=== PATIENT | male | born 1985 | race Caucasian/White ===

== ENCOUNTER 2016-08-18 12:01 | Emergency (ER) | payer BC, MEDICAID ==
[2016-08-18 12:13] VITALS: BP 141/80
--- NOTE | 2016-08-18 12:27 | UC ---
Hand/Wrist HPI - HPI Summary HPI Summary: FELL BACKWARDS WHILE SNOWBOARDING 11 DAYS AGO. LANDED ON OUTSTRETCHED LEFT HAND AND BUTTOCKS. HAS PAIN IN LOW BACK, TAILBONE AND LEFT WRIST THAT ARE NOT IMPROVING. - History Of Current Complaint Chief Complaint: UCTrauma Stated Complaint: BACK AND WRIST INJURY Time Seen by Provider: 08/18/16 12:11 Hx Obtained From: Patient Onset/Duration: Sudden Onset, Lasting Days, Still Present Severity Initially: Moderate Severity Currently: Moderate Pain Intensity: 10 Pain Scale Used: 0-10 Numeric Character Of Pain: Sharp Aggravating Factor(s): Movement Alleviating: Nothing Associated Signs And Symptoms: Positive: Swelling Related History: Dominant Hand Right - Allergies/Home Medications Allergies/Adverse Reactions: Allergies Allergy/AdvReac Type Severity Reaction Status Date / Time No Known Allergies Allergy Verified 08/18/16 12:13 Home Medications: Home Medications Acetaminophen [Tylenol] 1 tab PRN 08/18/16 [History] PMH/Surg Hx/FS Hx/Imm Hx Previously Healthy: Yes - Surgical History Surgical History: Yes Surgery Procedure, Year, and Place: Fx Jaw - jaw wire 2006 - Family History Known Family History: Negative: Hypertension - Social History Alcohol Use: None Substance Use Type: None Smoking Status (MU): Never Smoked Tobacco Household Exposure Type: Cigarettes - Immunization History Most Recent Influenza Vaccination: never Most Recent Tetanus Shot: up to date Review of Systems Constitutional: Negative Skin: Negative Respiratory: Negative Cardiovascular: Negative Gastrointestinal: Negative Musculoskeletal: Arthralgia, Decreased ROM, Edema, Myalgia All Other Systems Reviewed And Are Negative: Yes Physical Exam Triage Information Reviewed: Yes Appearance: Well-Appearing, No Pain Distress, Well-Nourished Vital Signs: Initial Vital Signs Temp 98.1 F 08/18/16 12:06 Pulse 73 08/18/16 12:06 Resp 16 08/18/16 12:06 BP 141/80 08/18/16 12:06 Pulse Ox 97 08/18/16 12:06 Vital Signs Reviewed: Yes Eyes: Positive: Conjunctiva Clear ENT: Positive: Hearing grossly normal Neck: Positive: Supple Respiratory: Positive: No respiratory distress, No accessory muscle use Cardiovascular: Positive: Pulses Normal Abdomen Description: Positive: Soft Musculoskeletal: Positive: ROM Limited @ - LEFT WRIST, BACK, Edema @ - LEFT WRIST, Other: - TTP LEFT WRIST ANATOMIC SNUFFBOX AND CARPAL BONES. TTP COCCYX Neurological: Positive: Alert Psychological: Positive: Age Appropriate Behavior Skin: Negative: rashes Diagnostics - Radiology LEFT WRIST XRAY Xray Interpretation: No Acute Changes Radiology Interpretation Completed By: Radiologist LUMBARSACRAL XRAY Xray Interpretation: No Acute Changes Radiology Interpretation Completed By: Radiologist SACRUM/COCCYX XRAY Xray Interpretation: No Acute Changes Radiology Interpretation Completed By: Radiologist Hand/Wrist Course/Dx - Differential Dx/Diagnosis Differential Diagnosis/HQI/PQRI: Fracture, Tendonitis Provider Diagnoses: 1. LEFT WRIST SPRAIN. 2. CONTUSION COCCYX Discharge - Discharge Plan Condition: Stable Disposition: HOME Prescriptions: Hydrocodone-Acetaminophen [Lorcet 5-325 mg] 1 tab PO QID PRN #20 tab MDD 4 PRN Reason: Pain Patient Education Materials: Coccyx Injury (ED), Wrist Sprain (ED) Referrals: Kenneth Mcgovern MD [Medical Doctor] - 5 Days Additional Instructions: XRAYS TODAY DO NOT SHOW ANY CLEAR FRACTURE OR ABNORMALITY. GIVEN THE SEVERITY OF YOUR PAIN AND THE FACT THAT IT IS NOT IMPROVING AT ALL WOULD RECOMMEND ORTHO FOLLOW-UP FOR FURTHER EVALUATION. THUMB SPICA SPLINT. CALL THE NUMBER BELOW FOR ASSISTANCE IN ESTABLISHING WITH A PCP An additional resource available to assist in finding the appropriate physician for your health care needs is the [facility] ([facility]). You may contact them by calling [phone].
--- NOTE | 2016-08-18 13:04 | RAD ---
INDICATION: Left wrist injury COMPARISON: None TECHNIQUE: AP, lateral, and oblique views were obtained. FINDINGS: There is a bony protuberance from the ulnar aspect of the distal radius. This could be developmental or be related to an old injury. The bony structures and joint spaces are otherwise unremarkable.. IMPRESSION: NO ACUTE BONY FINDINGS.
--- NOTE | 2016-08-18 13:05 | RAD ---
INDICATION: Back pain COMPARISON: None TECHNIQUE: Routine PA, lateral, and oblique imaging was performed . FINDINGS: Bones: There are no acute bony findings. There are no significant osteoarthritic findings. Alignment: Normal Disc spaces: The disc spaces are well-maintained Soft tissues: There are no soft tissue abnormalities. IMPRESSION: NEGATIVE EXAMINATION.
--- NOTE | 2016-08-18 13:05 | RAD ---
HISTORY: Trauma, pain COMPARISONS: None VIEWS: 3, frontal, oblique, and lateral views of the sacrum FINDINGS: BONE DENSITY: Normal. BONES: There is no displaced fracture. JOINTS: There is no arthropathy. ALIGNMENT: There is no dislocation. SOFT TISSUES: Unremarkable. OTHER FINDINGS: None. IMPRESSION: NO ACUTE OSSEOUS INJURY OF THE SACRUM AND COCCYX. PLAIN FILMS ARE RELATIVELY INSENSITIVE TO NONDISPLACED FRACTURES OF THE SACRUM AND COCCYX. IF THERE IS PERSISTENT CLINICAL CONCERN FOR SACROCOCCYGEAL OSSEOUS PATHOLOGY, BONE SCANNING MAY BE MORE SENSITIVE
== END 2016-08-18 13:35 | disposition home or self-care (01) ==
LOC: UCEAST 12:01
DX: S63.502A Unspecified sprain of left wrist, initial encounter (principal); S30.0XXA Contusion of lower back and pelvis, initial encounter; W17.89XA Other fall from one level to another, initial encounter; Y93.23 Activity, snow (alpine) (downhill) skiing, snowboarding, sledding, tobogganing and snow tubing; Y92.9 Unspecified place or not applicable
CPT/HCPCS: 72110; 72220; 99213; G0463

== ENCOUNTER 2018-04-01 08:56 | Emergency (ER) | payer MEDICAID, OTHER ==
[2018-04-01 09:05] VITALS: BP 129/76
--- NOTE | 2018-04-01 10:15 | RAD ---
HISTORY: right hemicranial JEREZ COMPARISONS: March 10, 2010 TECHNIQUE: Multiple contiguous axial CT scans were obtained of the head without intravenous contrast. FINDINGS: HEMORRHAGE/INFARCT: There is no hemorrhage or acute infarct. MASSES/SHIFT: There is no mass or shift. EXTRA-AXIAL SPACES: There are no extra-axial fluid collections. SULCI AND VENTRICLES: The sulci and ventricles are normal in size and position for the patient's stated age. CEREBRUM: There are no focal parenchymal abnormalities. BRAINSTEM: There are no focal parenchymal abnormalities. CEREBELLUM: There is stable low-attenuation lesion of the right inferior cerebellum. VESSELS: The vessels are grossly normal. PARANASAL SINUSES: The paranasal sinuses are clear. ORBITS: The orbits are unremarkable. BONES AND SOFT TISSUE: No bone or soft tissue abnormalities are noted. OTHER: None IMPRESSION: 1. NO ACUTE INTRACRANIAL PATHOLOGY. 2. AGAIN NOTED IS A LOW-ATTENUATION LESION OF THE RIGHT CEREBELLUM, UNCHANGED FROM 2009.
[2018-04-01] MEDS ORDERED: predniSONE TAB* 20 MG PO ONE (10:26)
--- NOTE | 2018-04-01 10:29 | UC ---
Headache HPI - HPI Summary HPI Summary: The patient is a 32-year-old male presents here for evaluation of headaches. The patient states that he had similar headaches about 10 years ago. Since that time he has been headache free until the past few weeks. 2-3 times a week he experiences severe right temporal headaches. During these headaches is photophobic and experiencing is tearing of his right eye as well as a runny nose on the right side. These headaches are so severe that he cannot function at all. - History Of Current Complaint Chief Complaint: UCHeadache Stated Complaint: HEADACHE Time Seen by Provider: 04/01/18 09:38 Hx Obtained From: Patient Onset/Duration: Sudden Onset, Lasting Hours Onset Of Symptoms: Sudden Initially Headache Was: Severe Currently Pain Is: Moderate Pain Intensity: 6 Pain Scale Used: 0-10 Numeric Timing: Intermittent, Lasting:, Hours Character: Sharp Location of Headache: Temporal Allevating Factor(s): Nothing Associated Signs And Symptoms: Positive: Negative Related History: Similar Episode/DX As: - cluster JEREZ - Allergies/Home Medications Allergies/Adverse Reactions: Allergies Allergy/AdvReac Type Severity Reaction Status Date / Time No Known Allergies Allergy Verified 04/01/18 09:05 PMH/Surg Hx/FS Hx/Imm Hx Previously Healthy: Yes - Surgical History Surgical History: Yes Surgery Procedure, Year, and Place: Fx Jaw - jaw wire 2006 - Family History Known Family History: Negative: Hypertension, Diabetes - Social History Alcohol Use: Occasionally Substance Use Type: None Smoking Status (MU): Never Smoked Tobacco Household Exposure Type: Cigarettes - Immunization History Most Recent Influenza Vaccination: never Most Recent Tetanus Shot: up to date Review of Systems Constitutional: Negative Skin: Negative Eyes: Negative ENT: Negative Respiratory: Negative Cardiovascular: Negative Gastrointestinal: Negative Genitourinary: Negative Motor: Negative Neurovascular: Negative Musculoskeletal: Negative Neurological: Headache Psychological: Negative All Other Systems Reviewed And Are Negative: Yes Physical Exam Triage Information Reviewed: Yes Appearance: Well-Appearing, No Pain Distress, Well-Nourished Vital Signs: Initial Vital Signs Temp 97.1 F 04/01/18 09:01 Pulse 69 04/01/18 09:01 Resp 20 04/01/18 09:01 BP 129/76 04/01/18 09:01 Pulse Ox 100 04/01/18 09:01 Vital Signs Reviewed: Yes Eyes: Positive: Conjunctiva Clear, Other: - eomi/perrl, fundi benign ENT: Positive: Hearing grossly normal, TMs normal, Uvula midline. Negative: Pharyngeal erythema, Nasal congestion, Nasal drainage, Tonsillar swelling, Tonsillar exudate, Trismus, Muffled voice, Hoarse voice, Dental tenderness, Sinus tenderness Neck: Positive: Supple, Nontender, No Lymphadenopathy Respiratory: Positive: Lungs clear, Normal breath sounds, No respiratory distress, No accessory muscle use Cardiovascular: Positive: RRR Musculoskeletal: Positive: ROM Intact, No Edema Neurological: Positive: Alert, Fatigued, Other: - GCS15/15, cn2-12 intct , strenght 5/5, DTRs symetric, normal gait Skin Exam: Normal Diagnostics - Radiology No standard instances Xray Interpretation: No Acute Changes Radiology Interpretation Completed By: Radiologist - 1. NO ACUTE INTRACRANIAL PATHOLOGY. 2. AGAIN NOTED IS A LOW-ATTENUATION LESION OF THE RIGHT CEREBELLUM, UNCHANGED FROM 201 Headache Course/Dx - Course Course Of Treatment: Advised to go to ER if he has a severe JEREZ where he can get high flow O2 as well as a shot of imetrex - Differential Dx/Diagnosis Provider Diagnoses: cluster headaches Discharge - Sign-Out/Discharge Documenting (check all that apply): Patient Departure All imaging exams completed and their final reports reviewed: Yes - Discharge Plan Condition: Stable Disposition: HOME Prescriptions: predniSONE TAB* [Deltasone 10 MG TAB*] 10 - 60 mg PO DAILY #43 tab Patient Education Materials: Cluster Headache (ED) Referrals: Nati Wynn MD [Medical Doctor] - As Soon As Possible Additional Instructions: tylenol for headaches (while on prednisone) TO ER FOR WORSENING SYMPTOMS you need to follow up with a neurologist for headache management as well an for confirmation of diagnosis/exam and review of imaging studies - Billing Disposition and Condition Condition: STABLE Disposition: Home
== END 2018-04-01 10:40 | disposition home or self-care (01) ==
LOC: UCEAST 08:56
DX: G44.009 Cluster headache syndrome, unspecified, not intractable (principal)
CPT/HCPCS: 70450; 99212; G0463; J7512

== ENCOUNTER 2019-03-13 16:44 | Emergency (ER) | payer MEDICAID, OTHER ==
[2019-03-13] MEDS ORDERED: Thiamine TAB* 100 MG TAB PO ONE (17:22)
[2019-03-13] MEDS ORDERED: Folic Acid TAB* 1 MG PO ONE (17:22)
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
[2019-03-13 17:56] LABS: ALT 18 U/L (7-52); AST 22 U/L (13-39); Albumin 5.3 g/dL (3.2-5.2); Albumin/Globulin Ratio 1.9 (1-3); Alkaline Phosphatase 48 U/L (34-104); Anion Gap 12 mmol/L (2-11); BUN/Creatinine Ratio 7.5 (8-20); Blood Urea Nitrogen 8 mg/dL (6-24); CO2 Carbon Dioxide 25 mmol/L (22-32); Calcium 10.1 mg/dL (8.6-10.3); Chloride 103 mmol/L (101-111); EGFR African American 97.4 (>60); EGFR Non-African American 80.5 (>60); Globulin 2.8 g/dL (2-4); Glucose 98 mg/dL (70-100); Potassium 4.1 mmol/L (3.5-5.0); Sodium 140 mmol/L (135-145); Total Protein 8.1 g/dL (6.4-8.9)
[2019-03-13 17:57] LABS: ABS Basophils 0.1 10^3/ul (0-0.2); ABS Eosinophils 0.2 10^3/ul (0-0.6); ABS Lymphocytes 3.1 10^3/ul (1.0-4.8); ABS Monocytes 0.9 10^3/ul (0-0.8); Eosinophil % 2.1 %; Hematocrit 51 % (42-52); Hemoglobin 17.2 g/dL (14.0-18.0); Lymphocyte % 30.5 %; Mean Corpuscular HGB Conc 34 g/dL (31-36); Mean Corpuscular Hemoglobin 30 pg (27-31); Mean Corpuscular Volume 89 fL (80-94); Mean Platelet Volume 7.4 fL (7.4-10.4); Nucleated Red Blood Cells % 0.2; Platelet Count 327 10^3/uL (150-450); Red Blood Count 5.72 10^6 /uL (4.18-5.48); Red Cell Distribution Width 13 % (10-15); White Blood Count 10.2 10^3/uL (3.5-10.8)
[2019-03-13 18:07] LABS: Acetaminophen < 15 mcg/mL; Alcohol 166 mg/dL (<10); Salicylate < 2.50 mg/dL (<30)
[2019-03-13 18:21] LABS: TSH (Thyroid Stimulating Horm) 0.53 mcIU/mL (0.34-5.60)
[2019-03-13 19:04] LABS: Urine Appearance Clear; Urine Bacteria Absent (Absent); Urine Bilirubin Negative (Negative); Urine Blood 1+ (Negative); Urine Color Yellow; Urine Glucose Negative (Negative); Urine Ketones Negative (Negative); Urine Nitrite Negative (Negative); Urine Protein Negative (Negative); Urine Red Blood Cell 1+(3-5/hpf) (Absent); Urine Specific Gravity 1.005 (1.010-1.030); Urine Urobilinogen Negative (Negative); Urine White Blood Cell Absent (Absent)
--- NOTE | 2019-03-13 19:04 | ED ---
Progress - Progress Note Progress Note: Pt is a signout from Dr. Hinojosa at 1900 on 03/13/19 pending sobriety and MHE. Course/Dx - Course Course Of Treatment: Pt is a signout from Dr. Hinojosa at 1900 on 03/13/19 pending sobriety and MHE. As of 936, psych staff believes that the pt can be treated in outpatient. As of 2199, the pt will be d/c'ed with dx of mood disorder as per Dr. Allen. The pt is stable and agreeable with this plan. - Diagnoses Provider Diagnoses: Mood disorder Discharge - Sign-Out/Discharge Documenting (check all that apply): Patient Departure, Receiving Sign-Out Receiving patient FROM: Sin Hinojosa Patient Received Moderate/Deep Sedation with Procedure: No - Discharge Plan Condition: Stable Disposition: HOME Patient Education Materials: Alcohol Dependence (ED) Referrals: [facility] [Outside] - Billing Disposition and Condition Condition: STABLE Disposition: Home - Attestation Statements Document Initiated by Scribe: Yes Documenting Scribe: Beti Rooney Provider For Whom Phoebe is Documenting (Include Credential): Feliciano Leonard MD. Scribe Attestation: Beti Stockton scribed for Feliciano Leonard MD. on 03/14/19 at 0504. Scribe Documentation Reviewed: Yes Provider Attestation: The documentation as recorded by the jenniferibBeti lai accurately reflects the service I personally performed and the decisions made by , Feliciano Leonard MD. Status of Scribe Document: Viewed
[2019-03-13 19:16] LABS: Urine Benzodiazepine Screen None Detected (None Detect); Urine Opiates Screen None Detected (None Detect)
[2019-03-13 22:52] VITALS: BP 0/0
== END 2019-03-13 22:51 | disposition home or self-care (01) ==
LOC: ED 16:44
DX: F39 Unspecified mood [affective] disorder (principal); F41.9 Anxiety disorder, unspecified; F32.9 Major depressive disorder, single episode, unspecified
CPT/HCPCS: 36415; 80053; 80307; 80320; 80329; 81003; 81015; 84443; 85025; 99284; A9270-GY; G0480